=== PATIENT | male | born 1965 | race Caucasian/White ===

== ENCOUNTER 2017-01-03 11:38 | Emergency (ER) | payer OTHER ==
[~2017-01-03] VITALS: Ht 175.3 cm; Wt 83.8 kg
[~2017-01-03 11:38] MED LIST: BUPR75TA20 PO; HYDR-4079 PO
[2017-01-03 11:44] VITALS: TEMP 36.6; Ht 175.3 cm; Wt 83.8 kg
[2017-01-03] MEDS ORDERED: HYDROmorphone INJ 1 MG/ML SYR IV STA ×2 (11:56→13:38)
[2017-01-03] MEDS ORDERED: SODIUM CHLORIDE 0.9% 1000ML 1,000 ML IV STA (11:56)
[2017-01-03] MEDS ORDERED: ONDANSETRON INJ 2 MG/ML 2 ML VIAL IV STA (11:56)
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
[2017-01-03 12:23] LABS: BASO % 0.2 %; BASO ABS # 0.02 K/uL (0-0.2); COMPLETE YES; EOS % 2.4 %; HEMATOCRIT 43.3 % (42-52); IG% 0.2 %; LYMPH % 20.4 %; MEAN CELL VOLUME 90.8 fL (80-100); MEAN CORPUSCULAR HEMOGLOBIN 32.5 pg (25-34); MEAN CORPUSCULAR HGB CONC 35.8 g/dl (32-36); MEAN PLATELET VOLUME 8.7 fL (7.4-10.4); MONO % 5.4 %; NEUT % 71.4 %; PLATELET COUNT 253 K/uL (130-400); RED BLOOD COUNT 4.77 M/uL (4.7-6.1); WHITE BLOOD COUNT 12.27 K/uL (4.8-10.8)
[2017-01-03] MEDS ORDERED: OPTIRAY 320 IV PRN (12:30)
[2017-01-03] MEDS ORDERED: HYDR-4331 PO (12:32)
[2017-01-03] MEDS ORDERED: PRED50TA PO (12:32)
[2017-01-03] MEDS ORDERED: NRN300 PO (12:33)
[2017-01-03 12:38] LABS: URINE APPEARANCE CLEAR (CLEAR); URINE BILIRUBIN NEG (NEG); URINE COLOR YELLOW; URINE NITRITE NEG (NEG); URINE PH 5.5 (4.5-7.5); URINE SPECIFIC GRAVITY 1.016 (1.000-1.030); UROBILINOGEN NEG (NEG); ZZUR CULT IF INDIC CLEAN CATCH NO
[2017-01-03 12:40] LABS: MANUAL MICROSCOPIC REQUIRED? NO; REVIEW REQ? NO
[2017-01-03 12:43] LABS: BUN/CREATININE RATIO 15.3 (10-20); CALCIUM 8.8 mg/dl (8.5-10.1); CREATININE 0.86 mg/dl (0.60-1.40)
--- NOTE | 2017-01-03 13:20 | DIAGNOSTIC IMAGING REPORT ---
CT ABD/PELVIS IV CONTRAST ONLY CLINICAL HISTORY: Severe left lower quadrant abdominal pain COMPARISON STUDY: 11/24/2014 TECHNIQUE: Following the IV administration of 94 mL of Optiray-320, CT scan of the abdomen and pelvis was performed from the lung bases to the proximal femurs. Images are reviewed in the axial, sagittal, and coronal planes. IV contrast was administered without complication. A dose lowering technique was utilized adhering to the principles of ALARA. CT DOSE: 343.95 mGy.cm FINDINGS: Lower chest: There are minor basilar atelectatic changes. Liver: The contrast-enhanced liver is normal in size, contour, and attenuation. There is no intrahepatic biliary ductal dilatation. The hepatic veins and portal veins are patent. Gallbladder: Unremarkable. Spleen: Normal in size and attenuation. Pancreas: Unremarkable. Adrenal glands: Unremarkable. Kidneys: There is symmetric renal cortical enhancement. The kidneys are normal in size without hydronephrosis. Bowel: There are no transition zones indicate bowel obstruction. There is no evidence of acute appendicitis. There is no evidence of acute diverticulitis. There are scattered small bowel air-fluid levels. Peritoneum: There is no free air. There is trace free pelvic fluid similar to the preceding study Vasculature: The abdominal aorta is normal in course and caliber. Adenopathy: None. Pelvic viscera: Prostatic calcifications are evident Skeletal structures: No destructive osseous lesions are seen. IMPRESSION: 1. No evidence of bowel obstruction. No evidence of free air 2. No evidence of acute appendicitis. No evidence of acute diverticulitis 3. Trace pelvic fluid unchanged from 2015 4. Fluid-filled small bowel loops with scattered air-fluid levels. While nonspecific this could indicate a mild enteritis Electronically signed by: Luis Eduardo Bowser M.D. 01/03/2017 1:18 PM Dictated Date/Time: 01/03/2017 1:13 PM
[2017-01-03 14:52] VITALS: BP 145/82; PULSE 65; O2SAT 96
== END 2017-01-03 14:54 | disposition home or self-care (01) ==
LOC: C.EDB 11:39
DX: K52.9 Noninfective gastroenteritis and colitis, unspecified (principal); R10.32 Left lower quadrant pain; F17.200 Nicotine dependence, unspecified, uncomplicated; Z82.49 Family history of ischemic heart disease and other diseases of the circulatory system